=== PATIENT | male | born 1945 | race Caucasian/White ===

== ENCOUNTER 2020-08-08 05:45 | Inpatient (IN) ==
[2020-08-03 11:32] LABS: Basophils # 0.1 10*3/uL (0.0-0.2); Basophils % 0.5 % (0.0-0.8); Eosinophils # 0.2 10*3/uL (0.0-0.87); Eosinophils % 1.7 % (0.00-10.9); Hematocrit 43.7 VOL% (42.0-52.0); Hemoglobin 14.1 GM/DL (14.0-18.0); Immature Granulocytes % 0.6 %; Immature Granulocytes Absolute 0.06 #; Lymphocytes # 2.6 10*3/uL (1.4-4.0); Lymphocytes % 27.6 % (21.2-54.2); Mean Corpuscular HGB Conc 32.3 GM/DL (32-36); Mean Corpuscular Volume 90.5 FL (87-102); Mean Platelet Volume 9.5 FL (9.6-12.0); Monocytes % 10.3 % (1.7-12.7); Neutrophils % 59.3 % (38.7-73.9); Platelet Count 347 T/CUMM (130-400); Red Blood Count 4.83 MC/CUMM (3.8-5.5); Red Cell Distribution Width 13.3 % (9.3-17.3); White Blood Count 9.3 T/CUMM (4-12)
[2020-08-03 12:10] LABS: Albumin 3.6 G/DL (3.4-5.0); Bilirubin,Total 0.4 MG/DL (0.2-1.0); Calcium 9.5 MG/DL (8.5-10.1); Total Protein 8.1 G/DL (6.4-8.3)
[2020-08-08] MEDS ORDERED: DIAZEPAM 5 MG TABLET PO ONE (06:28)
[2020-08-08] MEDS ORDERED: ACETAMINOPHEN 500 MG TABLET PO ONE (06:28)
[2020-08-08] MEDS ORDERED: FAMOTIDINE 20 MG TABLET PO ONE (06:28)
[2020-08-08] MEDS ORDERED: GABAPENTIN 400 MG CAPSULE PO ONE (06:28)
[2020-08-08] MEDS ORDERED: cefTRIAXone 1,000 MG in SYRINGE 1 EACH IV ONE ×2 (06:30→09:00)
[2020-08-08] MEDS ORDERED: BUPIVACAINE MPF 0.25% 30 ML VIAL ONE (06:31)
[2020-08-08] MEDS: LACTATED RINGERS 1,000 ML IV SCH ×2 (06:35→11:31)
[2020-08-08] MEDS ORDERED: ONDANSETRON 4 MG/2 ML VIAL IV PRN (11:49)
[2020-08-08] MEDS ORDERED: ACETAMINOPHEN 325 MG TABLET PO PRN (11:49)
[2020-08-08] MEDS ORDERED: diphenhydrAMINE 50 MG/1 ML VIAL IV PRN (11:49)
[2020-08-08] MEDS ORDERED: oxyCODONE/ACETAMINOPHEN 5-325 MG TABLET PO PRN (11:49)
[2020-08-08] MEDS ORDERED: HYDROmorphone 2 MG/1 ML VIAL IV PRN (11:57)
[2020-08-08 12:00] LABS: Bilirubin,Urine Negative (Negative); Blood, Urine Moderate mg/dL (Negative); Glucose,Urine (UA) Negative (Negative); Ketones,Urine Negative (Negative); Nitrite,Urine Negative (Negative); Protein,Urine Negative; RBC,Urine 50 /HPF (0-4); Urine Appearance CLEAR (Clear); Urine Color Yellow (Yellow); Urine Specific Gravity 1.019 (1.001-1.035); Urine Urobilinogen < 2.0 EU/DL (0.2-1.0); WBC,Urine 1 /HPF (0-6)
[2020-08-08] MEDS ORDERED: propofoL 200 MG/20 ML VIAL IV ONE (12:15)
[2020-08-08] MEDS ORDERED: SEVOFLURANE 1 UNIT/15 MINUTE INH ONE (12:15)
[2020-08-08] MEDS ORDERED: LIDOCAINE 2% 5 ML VIAL ONE (12:15)
[2020-08-08] MEDS ORDERED: ONDANSETRON 4 MG/2 ML VIAL ONE (12:16)
[2020-08-08] MEDS ORDERED: fentaNYL 100 MCG/2 ML VIAL ONE (12:16)
[2020-08-08] MEDS ORDERED: LACTATED RINGERS 1,000 ML IV ONE (12:16)
[2020-08-08] MEDS ORDERED: DEXAMETHASONE 4 MG/1 ML VIAL ONE (12:16)
[2020-08-08] MEDS ORDERED: GLYCOPYRROLATE 0.4 MG/2 ML VIAL ONE ×2 (12:16→12:17)
[2020-08-08] MEDS ORDERED: ROCURONIUM 100 MG/10 ML VIAL IV ONE (12:16)
[2020-08-08] MEDS ORDERED: MIDAZOLAM 2 MG/2 ML VIAL ONE (12:16)
[2020-08-08] MEDS ORDERED: NEOSTIGMINE 10 MG/10 ML VIAL ONE (12:17)
[2020-08-08] MEDS ORDERED: ePHEDrine 50 MG/ML VIAL ONE (12:17)
[2020-08-08] MEDS: SODIUM CHLORIDE 0.9% 1,000 ML IV SCH ×2 (13:56→22:23)
[2020-08-08] MEDS: ACETAMINOPHEN 325 MG TABLET PO SCH ×3 (13:57→23:10)
[2020-08-08 14:01] LABS: Basophils # 0.1 10*3/uL (0.0-0.2); Basophils % 0.3 % (0.0-0.8); Eosinophils % 0.1 % (0.00-10.9); Hematocrit 45.8 VOL% (42.0-52.0); Hemoglobin 14.6 GM/DL (14.0-18.0); Immature Granulocytes % 0.7 %; Immature Granulocytes Absolute 0.13 #; Lymphocytes # 1.1 10*3/uL (1.4-4.0); Lymphocytes % 5.3 % (21.2-54.2); Mean Corpuscular HGB Conc 31.9 GM/DL (32-36); Mean Corpuscular Volume 92.3 FL (87-102); Mean Platelet Volume 8.9 FL (9.6-12.0); Monocytes % 3.1 % (1.7-12.7); Neutrophils % 90.5 % (38.7-73.9); Platelet Count 328 T/CUMM (130-400); Red Blood Count 4.96 MC/CUMM (3.8-5.5); Red Cell Distribution Width 13.3 % (9.3-17.3)
[2020-08-08] MEDS: DOCUSATE SODIUM 100 MG CAPSULE PO SCH (20:06)
[2020-08-08] MEDS ORDERED: OXYBUTYNIN 5 MG TABLET PO ONE (21:00)
[2020-08-09] MEDS: ACETAMINOPHEN 325 MG TABLET PO SCH ×4 (05:30→23:56)
[2020-08-09 05:58] LABS: Basophils % 0.3 % (0.0-0.8); Eosinophils # 0.1 10*3/uL (0.0-0.87); Eosinophils % 0.4 % (0.00-10.9); Hematocrit 41.6 VOL% (42.0-52.0); Hemoglobin 13.3 GM/DL (14.0-18.0); Immature Granulocytes % 0.5 %; Immature Granulocytes Absolute 0.06 #; Lymphocytes # 1.8 10*3/uL (1.4-4.0); Lymphocytes % 14.7 % (21.2-54.2); Mean Corpuscular Volume 90.6 FL (87-102); Mean Platelet Volume 9.2 FL (9.6-12.0); Monocytes % 10.6 % (1.7-12.7); Neutrophils % 73.5 % (38.7-73.9); Platelet Count 347 T/CUMM (130-400); Red Blood Count 4.59 MC/CUMM (3.8-5.5); Red Cell Distribution Width 13.3 % (9.3-17.3)
[2020-08-09] MEDS: SODIUM CHLORIDE 0.9% 1,000 ML IV SCH ×2 (06:35→18:33)
[2020-08-09 06:56] LABS: Calcium 8.6 MG/DL (8.5-10.1); Osmolality,Calculated 271.8 MOS/KG (273-304)
[2020-08-09] MEDS: PANTOPRAZOLE 40 MG TABLET PO SCH (08:56)
[2020-08-09] MEDS: OXYBUTYNIN XL 10 MG TABLET PO SCH (08:57)
[2020-08-09] MEDS: LOSARTAN 50 MG TABLET PO SCH (08:57)
[2020-08-09] MEDS: hydroCHLOROthiazide 12.5 MG CAPSULE PO SCH (08:57)
[2020-08-09] MEDS: DOCUSATE SODIUM 100 MG CAPSULE PO SCH ×2 (08:57→21:21)
[2020-08-09] MEDS ORDERED: BISACODYL 10 MG SUPP RECTAL ONE (13:22)
[2020-08-10 03:50] LABS: Basophils % 0.3 % (0.0-0.8); Eosinophils # 0.1 10*3/uL (0.0-0.87); Eosinophils % 0.7 % (0.00-10.9); Hematocrit 44.7 VOL% (42.0-52.0); Hemoglobin 14.3 GM/DL (14.0-18.0); Immature Granulocytes % 0.7 %; Immature Granulocytes Absolute 0.09 #; Lymphocytes # 1.6 10*3/uL (1.4-4.0); Lymphocytes % 12.3 % (21.2-54.2); Mean Corpuscular Volume 91.6 FL (87-102); Monocytes % 8.1 % (1.7-12.7); Neutrophils % 77.9 % (38.7-73.9); Platelet Count 389 T/CUMM (130-400); Red Blood Count 4.88 MC/CUMM (3.8-5.5); Red Cell Distribution Width 13.4 % (9.3-17.3); White Blood Count 13.1 T/CUMM (4-12)
[2020-08-10 04:20] LABS: Osmolality,Calculated 272.8 MOS/KG (273-304)
[2020-08-10] MEDS: ACETAMINOPHEN 325 MG TABLET PO SCH ×4 (06:20→23:28)
[2020-08-10] MEDS: LOSARTAN 50 MG TABLET PO SCH (08:44)
[2020-08-10] MEDS: PANTOPRAZOLE 40 MG TABLET PO SCH (08:46)
[2020-08-10] MEDS: DOCUSATE SODIUM 100 MG CAPSULE PO SCH ×2 (08:46→21:06)
[2020-08-10] MEDS: OXYBUTYNIN XL 10 MG TABLET PO SCH (08:46)
[2020-08-10] MEDS: hydroCHLOROthiazide 12.5 MG CAPSULE PO SCH (08:46)
[2020-08-10] MEDS ORDERED: BISACODYL 10 MG SUPP RECTAL ONE (14:17)
[2020-08-11 05:44] LABS: Calcium 8.8 MG/DL (8.5-10.1); Osmolality,Calculated 273.8 MOS/KG (273-304)
[2020-08-11] MEDS: ACETAMINOPHEN 325 MG TABLET PO SCH (06:39)
[2020-08-11] MEDS: OXYBUTYNIN XL 10 MG TABLET PO SCH (08:15)
[2020-08-11] MEDS: DOCUSATE SODIUM 100 MG CAPSULE PO SCH (08:15)
[2020-08-11] MEDS: PANTOPRAZOLE 40 MG TABLET PO SCH (08:15)
[2020-08-11] MEDS: hydroCHLOROthiazide 12.5 MG CAPSULE PO SCH (08:15)
[2020-08-11] MEDS: LOSARTAN 50 MG TABLET PO SCH (08:15)
[2020-08-11 09:23] VITALS: BP 152/82
== END 2020-08-11 12:00 | disposition home or self-care (01) | DRG 707 ==
LOC: N.OR 05:45 → N.SDSINP 05:46 → N.4E 11:49
PROVIDERS: ADMIT Surgery; ATTEND Surgery